=== PATIENT | male | born 1980 | race Caucasian/White ===

== ENCOUNTER 2019-01-18 08:44 | Emergency (ER) | payer SELFPAY ==
[~2019-01-18] VITALS: Ht 170.2 cm; Wt 83.7 kg
[2019-01-18 08:46] VITALS: Ht 170.2 cm; Wt 83.7 kg
--- NOTE | 2019-01-18 09:14 | ERD ---
ER Documentation Chief Complaint Chief Complaint right sided facial droop since 0 last night HPI This is a 38-year-old male with no past medical history. The patient presents to the emergency department complaining of a short droop that began 12 hours prior to arrival. The patient indicates that he notices symptoms when he was attempting to laugh. He denied a headache. He has had no changes in vision. He did state when he awoke this morning, just prior to arrival, he noticed that he was unable to completely close his right eye with increased tearing. He myriam es any weakness or numbness to his upper or lower extremities. He does not wear glasses or contacts. He has no neck pain. Patient stated he did notice drooling on the right side of his face. He did not eat anything this morning she does not complain of abnormal taste. He denies hyperacusis. He does state he has a fullness behind his right mastoid. ROS All systems reviewed and are negative except as per history of present illness. Physical Exam Vitals Vital Signs Date Temp Pulse Resp B/P (MAP) Pulse Ox O2 O2 Flow FiO2 Time Delivery Rate 01/18/19 96.4 56 18 155/96 97 08:46 (115) Physical Exam Constitutional:Well-developed. Well-nourished. HEENT:Normocephalic. Atraumatic.Pupils were equal round reactive to light. Moist mucous membranes.No tonsillar exudates. Neck: No nuchal rigidity. No lymphadenopathy. No posterior cervical spine tenderness or step-offs. Respiratory: Not using accessory muscles of respiration.Lungs were clear to auscultation bilaterally. No rhonchi. No rales. No wheezing. Cardiovascular: Regular rate regular rhythm.No murmurs. No rubs were appreciated.S1, S2 normal. Distal pulses are palpable 2+ bilaterally. GI: Abdomen was soft. Nontender. Non Distended. No pulsatile abdominal masses or bruits. No rebound. No guarding. Bowel sounds were present and normal. Muscle skeletal: Full range of motion of both the upper and lower extremities bilaterally.Normal muscle tone.No assymetrical calf tenderness or swelling. Skin: No petechia, no purpura. No lesions on the palms or the soles of the feet. No maculopapular rash. NEURO: Patient was alert, awake, orientated x3.Right sided facial droop. Incomplete right upper eyelid closure. Loss of forehead muscle tone on the right. Gait observed and normal with no ataxia.Speech had regular rate and rhythm. No focal neurological deficits. Procedures/MDM The patient presented to the emergency department with a sudden onset of unilateral facial droop, incomplete eyelid closure, and loss of forehead muscle tone. My differential diagnosis included but was not limited to meningeal infection, cholesteatoma, Guillain-[place] syndrome, lyme disease, Zoster, basilar artery aneurysm, mononucleosis or a brainstem event such as a mass, bleed or infarct. Forehead muscle tone was lost, CT scan of the head was negative and the patient had an otherwise normal neurological exam including all cranial nerves other than an isolated peripheral Cranial nerve VII motor weakness. It was my clinical impression the patients symptoms were a result of [place] Palsy. Given that the patient's symptoms started within 72 hours, antiviral therapy with steroids will be started to improve functional nerve recovery. Lubricating and hydrating ophthalmic preparations will also be given to the patient to prevent corneal damage from incomplete eyelid closure. Departure Diagnosis: Primary Impression: Jaramillo's palsy Condition: AKIN Ames MD Jan 18, 2019 09:08
[2019-01-18] MEDS ORDERED: PRED20TA PO (09:17)
[2019-01-18] MEDS ORDERED: VALA10004 PO (09:17)
[2019-01-18] MEDS ORDERED: LACR35O OP (09:17)
[2019-01-18] MEDS ORDERED: VALACYCLOVIR 500 MG TAB PO ONE (09:30)
[2019-01-18] MEDS ORDERED: predniSONE 20 MG TAB PO ONE (09:30)
[2019-01-18] MEDS ORDERED: OCULAR LUBRICANT 3.5 GM OPH OINT RIGHT EYE ONE (09:30)
[2019-01-18 11:20] VITALS: BP 127/87; PULSE 65; RESP 17
== END 2019-01-18 11:46 | disposition home or self-care (01) ==
LOC: E/R 08:44
DX: G51.0 Bell's palsy (principal)
CPT/HCPCS: 36415; 70450; 80053; 80061; 81003; 82550; 82553; 83036; 84484; 85025; 85610; 85730; 93005; 99285; J7512